=== PATIENT | female | born 1965 | race Caucasian/White ===

== ENCOUNTER 2017-10-18 09:22 | Emergency (ER) | payer OTHER ==
[~2017-10-18] VITALS: Ht 165.1 cm; Wt 63.5 kg
[2017-10-18 09:30] VITALS: Ht 165.1 cm; Wt 63.5 kg
[2017-10-18 10:35] VITALS: BP 126/51
== END 2017-10-18 11:59 | disposition home or self-care (01) ==
LOC: ED 09:22
DX: S82.145A Nondisplaced bicondylar fracture of left tibia, initial encounter for closed fracture (principal); S81.811A Laceration without foreign body, right lower leg, initial encounter; V43.52XA Car driver injured in collision with other type car in traffic accident, initial encounter; W22.10XA Striking against or struck by unspecified automobile airbag, initial encounter; Y93.89 Activity, other specified; Y99.8 Other external cause status; Y92.89 Other specified places as the place of occurrence of the external cause
CPT/HCPCS: J2001

== ENCOUNTER → 2020-07-22 | Outpatient (REF) | END | disposition home or self-care (01) | LOC: ECOV 13:47 | PROVIDERS: ATTEND Internal Medicine Cardiovascular Disease | DX: Z11.52 Encounter for screening for COVID-19 (principal) | CPT/HCPCS: U0003 ==